=== PATIENT | female | born 1960 | race American Indian/Alaskan Native ===

== ENCOUNTER 2019-02-10 16:23 | Emergency (ER) | payer MEDICAID ==
--- NOTE | 2019-02-10 17:23 | XRay Report ---
XR knee 3V RT INDICATION / CLINICAL INFORMATION: Right knee injury and pain. COMPARISON: None available. FINDINGS: BONES/JOINT(S): No acute fracture or subluxation. No significant degenerative changes. No significant joint effusion. SOFT TISSUES: No significant abnormality. ADDITIONAL FINDINGS: None. Signer Name: Levi Wyatt MD Signed: 02/10/2019 5:19 PM Workstation Name: [id number]
[2019-02-10] MEDS ORDERED: HYDROmorphone 1 MG/1 ML INJ IM ONE (18:34)
[2019-02-10] MEDS ORDERED: cloNIDine 0.1 MG TAB PO ONE (18:34)
--- NOTE | 2019-02-10 18:36 | Emergency Department Report ---
ED General Adult HPI - General Chief complaint: Extremity Injury, Lower Stated complaint: R KNEE INJURY Time Seen by Provider: 02/10/19 17:25 Source: patient, EMS (EMS documentation not available at the time of chart dictation), RN notes reviewed, old records reviewed Mode of arrival: Stretcher Limitations: Physical Limitation - History of Present Illness Initial comments: Primary care Dr.: Dr. Khan The patient is a 59-year-old female. The patient is not known to this provider previously. The patient has a history of hypertension and chronic pain. The patient presents to the ER for complaint of right medial knee pain and aching, after accidentally hitting her right lower extremity with a broom while sleeping. She denies additional injuries and denies additional complaints. She believes that she took her blood pressure medication today. Her pain is sharp, throbbing and achy, increases with palpation and decreases with rest -: Sudden Location: right, lower extremity (thank you) Radiation: non-radiation, other Quality: other Consistency: other Improves with: other Worsens with: other - Related Data Home Medications Medication Instructions Recorded Confirmed Last Taken Atenolol 50 mg PO DAILY 02/18/16 02/18/16 Unknown Previous Rx's Medication Instructions Recorded Last Taken Type Losartan/Hydrochlorothiazide 1 tab PO QDAY #30 tablet 06/25/15 Unknown Rx [Hyzaar 50-12.5 TAB] Acetaminophen [Non-Aspirin Extra 500 mg PO Q6HR PRN #30 tablet 02/10/19 Unknown Rx Strength] Ibuprofen [Motrin] 600 mg PO Q8H PRN #30 tablet 02/10/19 Unknown Rx Allergies Allergy/AdvReac Type Severity Reaction Status Date / Time No Known Allergies Allergy Verified 02/18/16 12:23 ED Review of Systems ROS: Stated complaint: R KNEE INJURY Other details as noted in HPI Constitutional: malaise Cardiovascular: denies: syncope Gastrointestinal: denies: abdominal pain Musculoskeletal: arthralgia, myalgia Psychiatric: anxiety ED Past Medical Hx - Past Medical History Hx Hypertension: Yes - Surgical History Past Surgical History?: No - Social History Smoking Status: Never Smoker Substance Use Type: None - Medications Home Medications: Home Medications Medication Instructions Recorded Confirmed Last Taken Type Losartan/Hydrochlorothiazide 1 tab PO QDAY #30 tablet 06/25/15 02/18/16 Unknown Rx [Hyzaar 50-12.5 TAB] Atenolol 50 mg PO DAILY 02/18/16 02/18/16 Unknown History Acetaminophen [Non-Aspirin Extra 500 mg PO Q6HR PRN #30 tablet 02/10/19 Unknown Rx Strength] Ibuprofen [Motrin] 600 mg PO Q8H PRN #30 tablet 02/10/19 Unknown Rx ED Physical Exam - General Limitations: Physical Limitation, Other (during the entire history and physical examination, I am reviewer sales and escorted by nurse Dario Tobar) General appearance: alert, in no apparent distress - Head Head exam: Present: atraumatic, normocephalic - Eye Eye exam: Present: normal appearance, EOMI. Absent: nystagmus - ENT ENT exam: Present: normal exam, normal orophraynx, mucous membranes moist, normal external ear exam - Neck Neck exam: Present: normal inspection, full ROM. Absent: tenderness, meningismus - Respiratory Respiratory exam: Present: normal lung sounds bilaterally. Absent: respiratory distress - Cardiovascular Cardiovascular Exam: Present: regular rate, normal rhythm, normal heart sounds. Absent: bradycardia, tachycardia, irregular rhythm, systolic murmur, diastolic murmur, rubs, gallop - GI/Abdominal GI/Abdominal exam: Present: soft. Absent: distended, tenderness, guarding, rebound, rigid, pulsatile mass - Extremities Exam Extremities exam: Present: normal inspection, tenderness, other (2+ pulses noted in the bilateral lower and upper extremities. The pelvis is stable. There is no long bony tenderness. There is reproducible knee tenderness, right medial joint line, anterior joint line, and right lateral joint line.). Absent: calf tenderness - Back Exam Back exam: Present: normal inspection. Absent: tenderness, CVA tenderness (R), CVA tenderness (L), paraspinal tenderness, vertebral tenderness - Neurological Exam Neurological exam: Present: alert, other (there is no facial droop. The tongue is midline. The extraocular lungs are intact bilaterally. The patient is moving 4 extremities spontaneously, 5 out of 5 strength in 4 extremities, sensation is intact to light touch in 4remedies.) - Psychiatric Psychiatric exam: Present: anxious - Skin Skin exam: Present: warm, dry, intact, normal color. Absent: rash ED Course Vital Signs 02/10/19 02/10/19 02/10/19 16:26 18:42 18:44 Temperature 97.8 F Pulse Rate 76 92 H Respiratory 20 20 Rate Blood Pressure 214/115 233/116 Blood Pressure [Left] O2 Sat by Pulse 100 Oximetry 02/10/19 02/10/19 19:22 20:03 Temperature Pulse Rate 73 Respiratory 19 Rate Blood Pressure Blood Pressure 219/105 200/98 [Left] O2 Sat by Pulse 93 Oximetry ED Medical Decision Making - Lab Data Vital Signs 02/10/19 02/10/19 02/10/19 16:26 18:42 18:44 Temperature 97.8 F Pulse Rate 76 92 H Respiratory 20 20 Rate Blood Pressure 214/115 233/116 Blood Pressure [Left] O2 Sat by Pulse 100 Oximetry 02/10/19 02/10/19 19:22 20:03 Temperature Pulse Rate 73 Respiratory 19 Rate Blood Pressure Blood Pressure 219/105 200/98 [Left] O2 Sat by Pulse 93 Oximetry - Radiology Data Radiology results: report reviewed, image reviewed Print Report Referring Physician: DESHAWN ALEXANDER Patient Name: MACEY LEAL Date of : 1960 Sex: Female Report Date: 2019-02-10 Report Status: Finalized Findings [facility] [address] [place] [address] XRay Report Signed Patient: MACEY LEAL MR#: [id number] : 1960 Acct:[id number] Age/Sex: 59 / F ADM Date: 02/10/19 Loc: ED Attending Dr: Ordering Physician: DESHAWN ALEXANDER MD Date of Service: 02/10/19 Procedure(s): XR knee 3V RT Accession Number(s): [id number] cc: ED MD CATHERINE Fluoro Time In Minutes: XR kn ee 3V RT INDICATION / CLINICAL INFORMATION: Right knee injury and pain. COMPARISON: None available. FINDINGS: BONES/JOINT(S): No acute fracture or subluxation. No significant degenerative changes. No significant joint effusion. SOFT TISSUES: No significant abnormality. ADDITIONAL FINDINGS: None. Signer Name: Levi Wyatt MD Signed: 02/10/2019 5:19 PM Workstation Name: [id number] Transcribed By: DRISS Dictated By: Levi Wyatt MD Electronically Authenticated By: Levi Wyatt MD Signed Date/Time: 02/10/19 171 DD/ 1718 - Medical Decision Making Differential diagnosis, including not limited to: Contusion, sprain, strain, fracture, dislocation, hypertension, anxiety, medication noncompliance Assessment and plan: 59-year-old female with a primary complaint of right medial and lateral knee pain after mild to moderate blunt trauma. She is afebrile with reassuring vital signs and does not endorse any additional traumatic injuries. Hypertension is chronic and present since 2016. Patient family quite preoccupied with hypertension. Attempted to explain the patient's hypertension is chronic, and that she's had it for years, at least since 2016. Patient gave verbal consent to discuss her past medical history information with friends and family. Patient resting comfortably in her stretcher at this time, and now she sleeping after hydromorphone for pain control and an anxiolysis. Blood pressure is improved after clonidine administration. Patient has chronic hypertension, And she will need to follow up with her primary care doctor for this. She did not endorse any symptoms or demonstrated any physical exam findings that would suggest acute end organ dysfunction. Critical care attestation.: If time is entered above; I have spent that time in minutes in the direct care of this critically ill patient, excluding procedure time. ED Disposition Clinical Impression: Right knee pain, Hypertension Disposition: DC-01 TO HOME OR SELFCARE Is pt being admited?: No Does the pt Need Aspirin: No Condition: Stable Instructions: Hypertension (ED) Additional Instructions: Weight-bearing as tolerated. Take pain medications as needed and directed. Use the crutches as needed. Pain typically gets worse before gets better after mild blunt trauma which is what the patient experienced. Return to the emergency room right away with new, worse or different symptoms, or symptoms not present on the initial emergency room evaluation. Patient should follow-up with her primary care doctor within the next month further hypertension and elevated blood pressure. Long-term complications of hypertension and elevated blood pressure includes stroke, heart attack, disability, paralysis, loss of quality of life. Recommend physical activities as tolerated, modification of diet, weight loss, consumption of fiber, vegetables, and the protein. Patient may follow up with her primary care doctor or the orthopedic physician for her right knee pain, for further evaluation and outpatient management, such as physical therapy. Prescriptions: Ibuprofen [Motrin] 600 mg PO Q8H PRN #30 tablet PRN Reason: Pain Acetaminophen [Non-Aspirin Extra Strength] 500 mg PO Q6HR PRN #30 tablet PRN Reason: Pain , Severe (7-10) Referrals: BELLA SIMS MD [Staff Physician] - as needed [facility] [Provider Group] - 7-10 days [facility] [Provider Group] - 7-[address] [facility] [Provider Group] - as needed
[2019-02-10 20:03] VITALS: BP 200/98
== END 2019-02-10 20:31 | disposition home or self-care (01) ==
LOC: ED 16:23
DX: M25.561 Pain in right knee (principal); I10 Essential (primary) hypertension; Z79.899 Other long term (current) drug therapy
CPT/HCPCS: 29505; 73562; 96372; 99284; J1170

== ENCOUNTER 2021-02-08 08:43 | Day surgery (SDC) | payer OTHER ==
[2021-01-26 10:02] LABS: BUN/Creatinine Ratio 14; Blood Urea Nitrogen 13 mg/dL (7-17); Hemolysis Index 17
[2021-01-26 10:11] LABS: Mean Corpuscular HGB Conc 30 % (30-34); Mean Corpuscular Volume 87 fl (79-97); Platelet Count 331 K/mm3 (140-440); Red Blood Count 5.74 M/mm3 (3.65-5.03)
[2021-01-26 10:16] LABS: Hematocrit 50.1 % (30.3-42.9); Hemoglobin 15.2 gm/dl (10.1-14.3)
[2021-02-08] MEDS ORDERED: LACTATED RINGERS 1,000 ML ONE (09:27)
--- NOTE | 2021-02-08 09:57 | Anesthesia Day of Surgery ---
Anesthesia Day of Surgery - Day of Surgery Patient Examined: Yes Patient H&P Reviewed: Yes Patient is NPO: Yes Beta Blockers: Yes
--- NOTE | 2021-02-08 09:58 | Anesthesia Consultation ---
Anesthesia Consult and Med Hx Date of service: 02/08/21 - Airway Anesthetic Teeth Evaluation: Partials (Many missing teeth) ROM Head & Neck: Adequate Mental/Hyoid Distance: Adequate Mallampati Class: Class I Intubation Access Assessment: Good - Pre-Operative Health Status ASA Pre-Surgery Classification: ASA3 Proposed Anesthetic Plan: General, MAC (MAC; GA if needed) - Pulmonary Hx Smoking: Yes (STOPPED X 2 YRS) Hx Sleep Apnea: No (ИВАН PRE SCREEN LOW RISK) - Cardiovascular System Hx Hypertension: Yes (X 20 YRS) - Central Nervous System Hx Seizures: Yes (X 1 ( 8 YRS AGO) NO MEDS) Hx Back Pain: Yes (WITH CANDY LEG PAIN) Hx Psychiatric Problems: No - Hematic Hx Anemia: No Hx Sickle Cell Disease: No - Other Systems Hx Cancer: No
[2021-02-08] MEDS ORDERED: LACTATED RINGERS 1,000 ML IV SCH (10:00)
[2021-02-08] MEDS ORDERED: MIDAZOLAM 2 MG/2 ML INJ IV NR (10:00)
[2021-02-08] MEDS ORDERED: HYDROmorphone 1 MG/1 ML INJ IV PRN (10:00)
[2021-02-08] MEDS ORDERED: ONDANSETRON 4 MG/2 ML INJ IV PRN (10:30)
[2021-02-08] MEDS ORDERED: ceFAZolin/Water 2 GM/20 ML 2 GM/20 ML SYRINGE IV ONE (11:09)
[2021-02-08] MEDS ORDERED: LIDOCAINE (1%) 10 MG/1 ML VIAL 20 ML MDV ONE (11:13)
[2021-02-08] MEDS ORDERED: BUPIVACAINE/PF (0.25%) 2.5 MG/ML 30 ML VIAL INFILTRATI ONE ×2 (11:14→11:54)
[2021-02-08] MEDS ORDERED: MIDAZOLAM 2 MG/2 ML INJ ONE (11:27)
[2021-02-08] MEDS ORDERED: fentaNYL 100 MCG/2 ML INJ ONE (11:27)
[2021-02-08] MEDS ORDERED: propofoL 200 MG/20 ML VIAL IV ONE ×2 (11:28→12:25)
[2021-02-08] MEDS ORDERED: LIDOCAINE MPF (2%) 20 MG/1 ML VIAL 5 ML ONE (11:28)
[2021-02-08] MEDS ORDERED: KETAMINE/STERILE WATER 50 MG/ML SYRINGE ONE (11:40)
[2021-02-08] MEDS ORDERED: LIDOCAINE (1%) 10 MG/1 ML VIAL 20 ML MDV INFILTRATI ONE (11:56)
--- NOTE | 2021-02-08 13:07 | Short Stay Summary ---
Short Stay Documentation Date of service: 02/08/21 - History Principal diagnosis: mass of left buttock H&P: obtained from office - Allergies and Medications Current Medications: Allergies No Known Allergies Allergy (Verified 02/18/16 12:23) Home Medications Medication Instructions Recorded Confirmed Last Taken Type Atenolol 50 mg PO DAILY 02/18/16 01/24/21 Unknown History hydroCHLOROthiazide [Hctz] 12.5 mg PO QDAY 01/24/21 01/24/21 Unknown History Active Medications Hydromorphone HCl (Hydromorphone 1 Mg/1 Ml Inj) 0.25 mg IV Q10MIN PRN PRN Reason: Pain, Moderate (4-6) Stop: 02/08/21 17:00 Hydromorphone HCl (Hydromorphone 1 Mg/1 Ml Inj) 0.5 mg IV Q10MIN PRN PRN Reason: Pain , Severe (7-10) Stop: 02/08/21 17:00 Lactated Ringer's (Lactated Ringers) 1,000 mls @ 125 mls/hr IV DIRECT LESLYE Midazolam HCl (Midazolam 2 Mg/2 Ml Inj) 2 mg IV PREOP NR Stop: 02/08/21 23:59 Ondansetron HCl (Ondansetron 4 Mg/2 Ml Inj) 4 mg IV ONCE PRN PRN Reason: Nausea And Vomiting Stop: 02/08/21 18:00 - Brief post op/procedure progress note Date of procedure: 02/08/21 Pre-op diagnosis: mass of left buttock Post-op diagnosis: same Procedure: excision of mass left buttock Anesthesia: MAC, local Findings: 15 cm lobulated fatty mass of the left buttock Margins marked - short stitch superior, long stitch lateral, double tail stitch deep Surgeon: TRACEE ABDI Estimated blood loss: minimal Pathology: list (mass left buttock) Specimen disposition: to lab Condition: stable - Hospital course Hospital course: Pt observed in PACU and discharged to home in stable condition - Disposition Condition at discharge: Good Disposition: 01 HOME / SELF CARE / HOMELESS Short Stay Discharge Plan Activity: no restrictions Diet: regular Wound: per your surgeon's advice Follow up with: PRIMARY CARE,MD [Primary Care Provider] - 7 Days TRACEE ABDI DO [Staff Physician] - 14 Days Prescriptions: HYDROcodone/APAP 5-325 [[place] 5/325] 1 each PO Q6HR PRN #15 tablet PRN Reason: Pain , Severe (7-10)
[2021-02-08] MEDS: HYDROmorphone 1 MG/1 ML INJ IV PRN ×2 (13:27→13:37)
[2021-02-08 13:50] VITALS: BP 152/86
--- NOTE | 2021-02-08 13:56 | Operative Report ---
Operative Report Operative Report: Date of procedure: 02/08/21 Pre-op diagnosis: mass of left buttock Post-op diagnosis: same Procedure: excision of mass left buttock Anesthesia: MAC, local Findings: 15 cm lobulated fatty mass of the left buttock Margins marked - short stitch superior, long stitch lateral, double tail stitch deep Surgeon: TRACEE ABDI Estimated blood loss: minimal Pathology: list (mass left buttock) Specimen disposition: to lab Condition: stable Hospital course: Pt observed in PACU and discharged to home in stable condition Condition at discharge: Good Indication: Patient is a 61 yo female who presented to the office for a workup of a mass of the left buttock. The mass had been present for many years and grown in size. Due to size the mass was painful at times especially when sitting down. It was recommended that mass be excised and patient was agreeable. After all risks were discussed and questions answered, consent was signed in the office. Procedure in detail: Patient was identified in the preoperative area, taken back to the operating room, placed on the operating room table in left lateral decubitus position. After anesthesia was induced, the left buttock was prepped and draped in usual sterile fashion and a timeout was performed. Local anesthetic was injected into the skin at the intended incision site. A transverse incision was made in the skin over the mass using a 15 blade. Dissection was carried down through the skin using electrocautery.The mass was identified. It was adhered to the skin circumfrentially. The mass was carefully dissected from the dermis using hemostat, electrocautery and blunt dissected. I continued the dissection deep to this in order to free the mass from the underlying subcutaneous tissue. The mass was fatty and multilobulated with multiple septations. There were palpable calcified areas of the mass. Once the mass was completely dissected, margins were marked with suture as follows: short stitch superior, long stitch lateral, double tail stitch deep. The mass measured at 15 cm and was passed of the table as a specimen The wound was then irrigated and hemostasis achieved with electrocautery and pressure. Surgicel powder was also sprayed into the pocket to further ensure hemostasis. The deep dermal layer was then closed using interrupted 3-0 Vicryl sutures. The skin was closed with 4-0 Monocryl subcuticular running stitch and skin glue. After the skin wound was dry, a compression dressing was applied using fluff gauze, ABD pad, and elastoplast tape. At the end of the case, all sponge, instrument, sharp counts were correct 2. The patient was awoken from anesthesia and taken to PACU in stable condition.
--- NOTE | 2021-02-08 16:43 | Post Anesthesia Evaluation ---
- Post Anesthesia Evaluation Patient Participated: Yes Airway Patent: Yes Stable Respiratory Function: Yes Nausea/Vomiting: No Temp > 96.8F: Yes Pain Manageable: Yes Adequeate Hydration: Yes Anesthesia Complications: No Block Receding Appropriately: Not Applicable Patient on Ventilator: No
== END 2021-02-08 14:15 | disposition home or self-care (01) ==
LOC: OR 08:43
PROVIDERS: ATTEND Surgery
DX: D17.1 Benign lipomatous neoplasm of skin and subcutaneous tissue of trunk (principal); Z20.822 Contact with and (suspected) exposure to COVID-19; I10 Essential (primary) hypertension; Z87.891 Personal history of nicotine dependence; Z79.899 Other long term (current) drug therapy; Z98.890 Other specified postprocedural states
CPT/HCPCS: 27045; 36415; 80048; 85027; 88307; J0690; J1170; J2250; J2704; J3010; J3490; J7120; U0003; 88304